=== PATIENT | male | born 1965 | race Caucasian/White ===

== ENCOUNTER 2016-09-27 10:45 | Emergency (ER) | payer OTHER ==
[~2016-09-27] VITALS: Ht 170.2 cm; Wt 80.0 kg
[~2016-09-27 10:45] MED LIST: HYDR1CAP PO; MORP30TA PO; NOCURR; OXYC1TAB PO
[2016-09-27] MEDS ORDERED: METH10 PO (10:55)
[2016-09-27 11:22] VITALS: BP 112/66
== END 2016-09-27 12:26 | disposition home or self-care (01) ==
LOC: EMS 10:47
DX: S62.306A Unspecified fracture of fifth metacarpal bone, right hand, initial encounter for closed fracture (principal); E11.9 Type 2 diabetes mellitus without complications; K21.9 Gastro-esophageal reflux disease without esophagitis; I10 Essential (primary) hypertension; F17.210 Nicotine dependence, cigarettes, uncomplicated; F11.90 Opioid use, unspecified, uncomplicated; W22.8XXA Striking against or struck by other objects, initial encounter; Y93.89 Activity, other specified; Y92.89 Other specified places as the place of occurrence of the external cause; Y99.8 Other external cause status
CPT/HCPCS: 99284